=== PATIENT | female | born 1995 | race Caucasian/White ===

== ENCOUNTER → 2022-06-05 | Outpatient (REF) | payer OTHER ==
[2022-06-05 17:09] LABS: BASO # 0.1 10^3/uL (0.0-0.2); BASO % 0.6 % (0.0-1.0); EOS # 0.1 10^3/uL (0.0-0.5); EOS % 0.8 % (0.0-3.0); HEMATOCRIT 46.7 % (36.0-47.0); HEMOGLOBIN 15.4 g/dl (12.0-15.5); LYMPH # 2.6 10^3/uL (1.5-5.0); LYMPH % 32.7 % (24.0-44.0); MEAN CORPUSCULAR HEMOGLOBIN 28.4 pg (27.0-33.0); MONO # 0.6 10^3/uL (0.0-0.8); MONO % 7.1 % (2.0-8.0); NEUTROPHILS # 4.6 10^3/uL (1.5-8.5); NEUTROPHILS % 58.5 % (36.0-66.0); PLATELET COUNT, AUTOMATED 314 10^3/uL (150-450); RED BLOOD COUNT 5.43 10^6/uL (4.00-5.40); WHITE BLOOD COUNT 7.9 10^3/uL (4.0-10.0)
[2022-06-05 17:35] LABS: TOTAL 25(OH) VITAMIN D 24.6 NG/ML (20.0-100.0)
[2022-06-05 17:36] LABS: HCG, SERUM QUALITATIVE NEGATIVE (NEGATIVE); THYROID STIMULATING HORMONE 1.244 uIU/ML (0.55-4.78)
[2022-06-05 17:38] LABS: FREE T4 1.17 NG/DL (0.89-1.76)
[2022-06-05 17:40] LABS: ALBUMIN 4.2 G/DL (3.2-5.2); ALKALINE PHOSPHATASE 84 U/L (46-116); ALT/SGPT 28 U/L (7.0-40); AST/SGOT 21 U/L (<34); BILIRUBIN,TOTAL 0.7 MG/DL (0.3-1.2); BLOOD UREA NITROGEN 8 MG/DL (9-23); CALCIUM LEVEL 9.2 MG/DL (8.5-10.1); CARBON DIOXIDE LEVEL 25 MMOL/L (20-31); CHLORIDE LEVEL 103 MMOL/L (98-107); CHOLESTEROL LEVEL 164 MG/DL (<200); CHOLESTEROL RISK RATIO 2.45 (<5); CREATININE FOR GFR 0.67 MG/DL (0.55-1.30); GLOMERULAR FILTRATION RATE > 60.0 (>60); GLUCOSE, FASTING 80 MG/DL (60-100); HDL CHOLESTEROL 66.8 MG/DL (>40); LDL CHOLESTEROL 75.8 MG/DL (<100); NON-HDL-C 97 MG/DL; POTASSIUM SERUM 4.3 MMOL/L (3.5-5.1); SODIUM LEVEL 139 MMOL/L (136-145); TOTAL PROTEIN 7.7 G/DL (5.7-8.2); TRIGLYCERIDES LEVEL 107 MG/DL (<150)
[2022-06-05 17:41] LABS: HEMOGLOBIN A1c 4.7 % (4.0-6.0)
== END ==
LOC: M LAB REF 16:34
PROVIDERS: ATTEND Nurse Practitioner Family
DX: F41.8 Other specified anxiety disorders (principal); Z13.228 Encounter for screening for other metabolic disorders

== ENCOUNTER → 2022-06-09 | Outpatient (REF) | payer OTHER | LOC: M LAB REF 16:37 | PROVIDERS: ATTEND Family Medicine Addiction Medicine | DX: N10 Acute pyelonephritis (principal) ==

== ENCOUNTER 2022-06-15 08:20 | Emergency (ER) | payer OTHER ==
[~2022-06-15] VITALS: Ht 157.5 cm; Wt 68.7 kg
[2022-06-15] MEDS ORDERED: CIPR-249 PO (08:35)
[2022-06-15 09:10] LABS: BASO % 0.5 % (0.0-1.0); EOS # 0.1 10^3/uL (0.0-0.5); EOS % 1.1 % (0.0-3.0); HEMATOCRIT 42.2 % (36.0-47.0); HEMOGLOBIN 14.5 g/dl (12.0-15.5); LYMPH # 2.2 10^3/uL (1.5-5.0); LYMPH % 33.2 % (24.0-44.0); MEAN CORPUSCULAR HEMOGLOBIN 28.4 pg (27.0-33.0); MEAN CORPUSCULAR HGB CONC 34.4 g/dl (32.0-36.5); MEAN CORPUSCULAR VOLUME 82.6 fl (80.0-96.0); MONO # 0.7 10^3/uL (0.0-0.8); NEUTROPHILS # 3.5 10^3/uL (1.5-8.5); PLATELET COUNT, AUTOMATED 282 10^3/uL (150-450); RED BLOOD COUNT 5.11 10^6/uL (4.00-5.40); WHITE BLOOD COUNT 6.5 10^3/uL (4.0-10.0)
[2022-06-15 09:24] LABS: LIPASE 31 U/L (12-53)
[2022-06-15 09:26] LABS: BILIRUBIN,DIRECT 0.2 MG/DL (<0.4)
[2022-06-15 09:27] LABS: ALKALINE PHOSPHATASE 77 U/L (46-116); ALT/SGPT 26 U/L (7.0-40); AST/SGOT 22 U/L (<34); BILIRUBIN,TOTAL 0.6 MG/DL (0.3-1.2); BLOOD UREA NITROGEN 11 MG/DL (9-23); CALCIUM LEVEL 9.1 MG/DL (8.5-10.1); CARBON DIOXIDE LEVEL 23 MMOL/L (20-31); CHLORIDE LEVEL 106 MMOL/L (98-107); CREATININE FOR GFR 0.61 MG/DL (0.55-1.30); GLOMERULAR FILTRATION RATE > 60.0 (>60); GLUCOSE, FASTING 89 MG/DL (60-100); HCG, SERUM QUALITATIVE NEGATIVE (NEGATIVE); POTASSIUM SERUM 4.1 MMOL/L (3.5-5.1); SODIUM LEVEL 136 MMOL/L (136-145); TOTAL PROTEIN 7.3 G/DL (5.7-8.2)
[2022-06-15] MEDS ORDERED: ONDANSETRON 4MG 2ML VIAL IV ONE (09:35)
[2022-06-15] MEDS ORDERED: NS 1,000 ML IV ONE (09:35)
[2022-06-15] MEDS ORDERED: KETOROLAC 30 MG/ML 1ML VIAL IV ONE (09:35)
[2022-06-15] MEDS ORDERED: ISOVUE-370 76% 100ML VIAL As Ordered ONE (09:43)
[2022-06-15] MEDS ORDERED: ONDA4TAB6 PO (11:21)
[2022-06-15] MEDS ORDERED: KETO10TAB PO (11:21)
[2022-06-15 11:35] VITALS: BP 153/89
== END 2022-06-15 11:37 | disposition home or self-care (01) ==
LOC: M ED 08:20
DX: N83.291 Other ovarian cyst, right side (principal); R19.09 Other intra-abdominal and pelvic swelling, mass and lump; Z87.448 Personal history of other diseases of urinary system
CPT/HCPCS: 74177; 80048; 80076; 81000; 81015; 83690; 84703; 85025; 87086; 96361; 96374; 96375; 99284; J1885; J2405

== ENCOUNTER 2022-08-03 09:05 | Emergency (ER) | payer OTHER ==
[~2022-08-03] VITALS: Ht 154.9 cm; Wt 69.5 kg
[~2022-08-03 09:05] MED LIST: CIPR-249 PO; KETO10TAB PO; ONDA4TAB6 PO
[2022-08-03 09:06] VITALS: BP 142/90
[2022-08-03] MEDS ORDERED: PSEU30TA86 PO (09:27)
[2022-08-03] MEDS ORDERED: IBUP200C28 PO (09:27)
[2022-08-03] MEDS ORDERED: OXYM15SP2 (11:43)
== END 2022-08-03 12:00 | disposition home or self-care (01) ==
LOC: M ED 09:05
DX: B34.9 Viral infection, unspecified (principal); K21.9 Gastro-esophageal reflux disease without esophagitis; Z79.1 Long term (current) use of non-steroidal anti-inflammatories (NSAID); Z79.899 Other long term (current) drug therapy

== ENCOUNTER → 2022-08-08 | Outpatient (CLI) | payer OTHER ==
[~2022-08-08] MED LIST changes: +IBUP200C28 PO; +OXYM15SP2; +PSEU30TA86 PO
[2022-08-08 16:01] LABS: HEMOGLOBIN A1c 4.7 % (4.0-6.0)
== END ==
LOC: M PLALAB 13:56
PROVIDERS: ATTEND Nurse Practitioner Family
DX: R10.2 Pelvic and perineal pain (principal); Z80.3 Family history of malignant neoplasm of breast
CPT/HCPCS: 36415; 82627; 83036; 83498; 84146; 84402; 84403; G0463

== ENCOUNTER 2022-08-22 13:02 | Emergency (ER) | payer OTHER ==
[~2022-08-22] VITALS: Ht 154.9 cm; Wt 69.5 kg
[2022-08-22 13:03] VITALS: BP 163/111
[2022-08-22] MEDS ORDERED: CETI10CH PO (13:16)
[2022-08-23] MEDS ORDERED: MACR100C43 PO (09:47)
[2022-08-23] MEDS ORDERED: IBUP-1022 PO (09:47)
[2022-08-23] MEDS ORDERED: MIRA3350 PO (09:47)
== END 2022-08-22 18:53 | disposition left against medical advice (07) ==
LOC: M ED 13:02
DX: Z53.21 Procedure and treatment not carried out due to patient leaving prior to being seen by health care provider (principal)

== ENCOUNTER 2022-08-23 06:20 | Emergency (ER) | payer OTHER ==
[~2022-08-23] VITALS: Ht 154.9 cm; Wt 68.2 kg
[~2022-08-23 06:20] MED LIST changes: +CETI10CH PO
[2022-08-23 07:03] LABS: APPEARANCE, URINE CLOUDY (CLEAR); BACTERIA, URINE AUTO 1+ (NEGATIVE); BILIRUBIN, URINE AUTO NEGATIVE (NEGATIVE); BLOOD, URINE BLOOD NEGATIVE (NEGATIVE); COLOR, URINE AMBER (YELLOW); GLUCOSE, URINE (UA) AUTO NEGATIVE (NEGATIVE); KETONE, URINE AUTO NEGATIVE (NEGATIVE); LEUKOCYTE ESTERASE, URINE AUTO NEGATIVE (NEGATIVE); MUCUS, URINE SMALL (NEGATIVE); NITRITE, URINE AUTO POSITIVE (NEGATIVE); PROTEIN, URINE AUTO NEGATIVE (NEGATIVE); RBC, URINE AUTO 0 /HPF (0-3); SPECIFIC GRAVITY URINE AUTO 1.019 (1.002-1.035); SQUAMOUS EPITHELIAL CELL UR AU 36 /HPF (0-6); WBC, URINE AUTO 2 /HPF (0-3)
[2022-08-23 07:17] LABS: HCG, SERUM QUALITATIVE NEGATIVE (NEGATIVE)
[2022-08-23] MEDS ORDERED: ACETAMINOPHEN 325 MG TAB PO ONE (07:45)
[2022-08-23] MEDS ORDERED: ONDANSETRON 4MG ORAL DISINTEGRATING TAB PO ONE (07:45)
[2022-08-23] MEDS ORDERED: IBUPROFEN 600MG TAB PO ONE (07:55)
[2022-08-23 09:43] VITALS: BP 138/94
[2022-08-23] MEDS ORDERED: MIRA3350 PO (09:47)
[2022-08-23] MEDS ORDERED: MACR100C43 PO (09:47)
[2022-08-23] MEDS ORDERED: IBUP-1022 PO (09:47)
== END 2022-08-23 09:59 | disposition home or self-care (01) ==
LOC: M ED 06:20
DX: N94.0 Mittelschmerz (principal); N39.0 Urinary tract infection, site not specified; K59.00 Constipation, unspecified

== ENCOUNTER 2022-09-22 00:45 | Emergency (ER) | payer OTHER ==
[~2022-09-22] VITALS: Ht 154.9 cm; Wt 73.2 kg
[~2022-09-22 00:45] MED LIST changes: +IBUP-1022 PO; +MACR100C43 PO; +MIRA3350 PO
[2022-09-22] MEDS ORDERED: MIRT-10 (00:53)
[2022-09-22] MEDS ORDERED: PENI500T (00:53)
[2022-09-22 03:13] LABS: BASO % 0.4 % (0.0-1.0); EOS # 0.3 10^3/uL (0.0-0.5); HEMATOCRIT 43.5 % (36.0-47.0); HEMOGLOBIN 14.6 g/dl (12.0-15.5); LYMPH % 31.9 % (24.0-44.0); MEAN CORPUSCULAR HEMOGLOBIN 28.7 pg (27.0-33.0); MEAN CORPUSCULAR HGB CONC 33.6 g/dl (32.0-36.5); MEAN CORPUSCULAR VOLUME 85.5 fl (80.0-96.0); MONO # 1.1 10^3/uL (0.0-0.8); MONO % 11.7 % (2.0-8.0); NEUTROPHILS # 4.9 10^3/uL (1.5-8.5); NEUTROPHILS % 52.8 % (36.0-66.0); PLATELET COUNT, AUTOMATED 309 10^3/uL (150-450); RED BLOOD COUNT 5.09 10^6/uL (4.00-5.40); WHITE BLOOD COUNT 9.2 10^3/uL (4.0-10.0)
[2022-09-22 03:31] LABS: LIPASE 38 U/L (12-53)
[2022-09-22 03:34] LABS: ALBUMIN 4.1 G/DL (3.2-5.2); ALKALINE PHOSPHATASE 84 U/L (46-116); ALT/SGPT 31 U/L (7.0-40); AST/SGOT 19 U/L (<34); BILIRUBIN,DIRECT 0.1 MG/DL (<0.4); BILIRUBIN,TOTAL 0.5 MG/DL (0.3-1.2); BLOOD UREA NITROGEN 21 MG/DL (9-23); CALCIUM LEVEL 9.6 MG/DL (8.5-10.1); CARBON DIOXIDE LEVEL 26 MMOL/L (20-31); CHLORIDE LEVEL 106 MMOL/L (98-107); CREATININE FOR GFR 0.71 MG/DL (0.55-1.30); GLOMERULAR FILTRATION RATE > 60.0 (>60); GLUCOSE, FASTING 87 MG/DL (60-100); POTASSIUM SERUM 4.2 MMOL/L (3.5-5.1); SODIUM LEVEL 137 MMOL/L (136-145); TOTAL PROTEIN 7.7 G/DL (5.7-8.2)
[2022-09-22] MEDS ORDERED: KETOROLAC 30 MG/ML 1ML VIAL IV ONE ×2 (05:00→08:30)
[2022-09-22] MEDS ORDERED: NS 1,000 ML IV ONE (08:30)
[2022-09-22] MEDS ORDERED: ONDANSETRON 4MG 2ML VIAL IV ONE (08:30)
[2022-09-22] MEDS ORDERED: ISOVUE-370 76% 100ML VIAL As Ordered ONE (08:48)
[2022-09-22 09:31] VITALS: BP 112/65
[2022-09-22] MEDS ORDERED: KETO10TAB PO (09:58)
[2022-09-22] MEDS ORDERED: ONDA4TAB6 PO (09:58)
== END 2022-09-22 10:12 | disposition home or self-care (01) ==
LOC: M ED 00:45
DX: R10.9 Unspecified abdominal pain (principal)
CPT/HCPCS: 74177; 76856; 80048; 80076; 81001; 83605; 83690; 84702; 85025; 87040; 93041; 93976; 96361; 96374; 96375; 96376; 99285; J1885; J2405; Q9967

== ENCOUNTER 2022-10-07 18:45 | Emergency (ER) | payer OTHER ==
[~2022-10-07] VITALS: Ht 154.9 cm; Wt 75.5 kg
[~2022-10-07 18:45] MED LIST changes: +MIRT-10; +PENI500T
[2022-10-07] MEDS ORDERED: ONDANSETRON 4MG 2ML VIAL IV ONE (21:20)
[2022-10-07] MEDS ORDERED: NS 500 ML IV ONE (21:20)
[2022-10-07 21:55] LABS: HEMOGLOBIN 12.9 g/dl (12.0-15.5); MEAN CORPUSCULAR HEMOGLOBIN 28.3 pg (27.0-33.0); MEAN CORPUSCULAR HGB CONC 33.9 g/dl (32.0-36.5); MEAN CORPUSCULAR VOLUME 83.3 fl (80.0-96.0); PLATELET COUNT, AUTOMATED 336 10^3/uL (150-450); RED BLOOD COUNT 4.56 10^6/uL (4.00-5.40); WHITE BLOOD COUNT 13.1 10^3/uL (4.0-10.0)
[2022-10-07] MEDS ORDERED: NS 1,000 ML IV ONE (22:00)
[2022-10-07] MEDS ORDERED: ONDA4TAB6 PO (22:52)
[2022-10-07 23:02] VITALS: BP 155/96
== END 2022-10-07 22:55 | disposition home or self-care (01) ==
LOC: M ED 18:45
DX: O99.519 Diseases of the respiratory system complicating pregnancy, unspecified trimester (principal); O99.619 Diseases of the digestive system complicating pregnancy, unspecified trimester; O99.340 Other mental disorders complicating pregnancy, unspecified trimester; Z79.899 Other long term (current) drug therapy
CPT/HCPCS: 80047; 84702; 85027; 86901; 87486; 87581; 87633; 87798; 96361; 96374; 99284; J2405

== ENCOUNTER 2022-10-15 11:12 | Emergency (ER) | payer OTHER ==
[~2022-10-15] VITALS: Ht 154.9 cm; Wt 75.7 kg
[2022-10-15] MEDS ORDERED: ALBUTEROL SULFATE 2.5MG/0.5ML INH NEB SOLN NEB ONE (12:45)
[2022-10-15 14:23] VITALS: BP 135/84
[2022-10-15] MEDS ORDERED: BENZ200C70 PO ×2 (14:33→15:10)
[2022-10-15] MEDS ORDERED: OXYM15SP2 ×2 (14:33→15:10)
== END 2022-10-15 14:45 | disposition home or self-care (01) ==
LOC: M ED 11:12
DX: J06.9 Acute upper respiratory infection, unspecified (principal); B34.0 Adenovirus infection, unspecified; K21.9 Gastro-esophageal reflux disease without esophagitis; Z79.899 Other long term (current) drug therapy

== ENCOUNTER → 2022-11-07 | Outpatient (CLI) | payer OTHER ==
[~2022-11-07] MED LIST changes: +BENZ200C70 PO
[2022-11-07 15:58] LABS: HEMATOCRIT 40.5 % (36.0-47.0); HEMOGLOBIN 13.5 g/dl (12.0-15.5); MEAN CORPUSCULAR HEMOGLOBIN 28.3 pg (27.0-33.0); MEAN CORPUSCULAR HGB CONC 33.3 g/dl (32.0-36.5); MEAN CORPUSCULAR VOLUME 84.9 fl (80.0-96.0); PLATELET COUNT, AUTOMATED 302 10^3/uL (150-450); RED BLOOD COUNT 4.77 10^6/uL (4.00-5.40)
[2022-11-07 16:06] LABS: TOTAL PROTEIN,RANDOM URINE 18.8 MG/DL (0.0-14.0)
[2022-11-07 16:11] LABS: CREATININE,RANDOM URINE 152.8 MG/DL
[2022-11-07 17:27] LABS: GC DNA AMPLIFICATION NEGATIVE (NEGATIVE)
[2022-11-07 21:10] LABS: HIV 1&2 SCREEN NEGATIVE (NEGATIVE)
[2022-11-07 21:35] LABS: ALT/SGPT 15 U/L (7.0-40); LDH LACTATE DEHYDROGENASE 183 U/L (120-246); URIC ACID 3.1 MG/DL (3.1-7.8)
[2022-11-07 21:36] LABS: AST/SGOT 14 U/L (<34); BILIRUBIN,TOTAL 0.4 MG/DL (0.3-1.2); CREATININE FOR GFR 0.54 MG/DL (0.55-1.30); GLOMERULAR FILTRATION RATE > 60.0 (>60)
== END ==
LOC: M PLALAB 14:27
PROVIDERS: ATTEND Specialist
DX: Z34.01 Encounter for supervision of normal first pregnancy, first trimester (principal)

== ENCOUNTER → 2022-12-19 | Outpatient (REF) | payer OTHER | LOC: M PLALAB 10:48 | PROVIDERS: ATTEND Obstetrics & Gynecology | DX: Z86.19 Personal history of other infectious and parasitic diseases (principal) | CPT/HCPCS: 87624; G0123 ==

== ENCOUNTER → 2022-12-19 | Outpatient (CLI) | payer OTHER | LOC: M PLALAB 10:20 | PROVIDERS: ATTEND Obstetrics & Gynecology | DX: Z34.80 Encounter for supervision of other normal pregnancy, unspecified trimester (principal) ==

== ENCOUNTER → 2023-01-17 | Outpatient (REF) | payer OTHER | LOC: M SFHCWAGY 12:51 | PROVIDERS: ATTEND Obstetrics & Gynecology | DX: R10.2 Pelvic and perineal pain (principal) | CPT/HCPCS: 87086; G0463 ==

== ENCOUNTER → 2023-01-23 | Outpatient (CLI) | payer OTHER | LOC: M RAD 08:59 | PROVIDERS: ATTEND Obstetrics & Gynecology | DX: O32.2XX0 Maternal care for transverse and oblique lie, not applicable or unspecified (principal); Z3A.20 20 weeks gestation of pregnancy ==

== ENCOUNTER 2023-02-28 20:57 | Outpatient (CLI) | payer OTHER ==
[~2023-02-28] VITALS: Ht 152.4 cm; Wt 96.4 kg
[2023-02-28 21:13] VITALS: BP 132/67
[2023-02-28] MEDS ORDERED: TUMS500C PO (21:22)
[2023-02-28] MEDS ORDERED: PREN1CHW6 PO (21:22)
[2023-02-28] MEDS ORDERED: HOME MED LIST COMPLETE! XX SCH (21:25)
[2023-02-28] MEDS ORDERED: LABE200T5 PO (21:40)
[2023-02-28] MEDS ORDERED: CLON0.1D3 TOP (21:40)
[2023-02-28] MEDS ORDERED: MIRT1TAB17 PO (21:40)
[2023-02-28] MEDS ORDERED: ASPI81CH33 PO (21:40)
[2023-02-28] MEDS ORDERED: DIAZ2TAB PO (21:40)
== END 2023-02-28 22:03 | disposition home or self-care (01) ==
LOC: M LDO 20:57
PROVIDERS: ATTEND Advanced Practice Midwife
DX: O36.8120 Decreased fetal movements, second trimester, not applicable or unspecified (principal); O99.342 Other mental disorders complicating pregnancy, second trimester; F41.9 Anxiety disorder, unspecified; F32.A Depression, unspecified; O10.012 Pre-existing essential hypertension complicating pregnancy, second trimester; Z79.899 Other long term (current) drug therapy; Z3A.25 25 weeks gestation of pregnancy
CPT/HCPCS: 59025; G0463

== ENCOUNTER → 2023-03-14 | Outpatient (CLI) | payer OTHER ==
[~2023-03-14] MED LIST changes: +ASPI81CH33 PO; +CLON0.1D3 TOP; +DIAZ2TAB PO; +LABE200T5 PO; +MIRT1TAB17 PO; +PREN1CHW6 PO; +TUMS500C PO
[2023-03-14 14:21] LABS: ALBUMIN 2.3 G/DL (3.2-5.2); ALKALINE PHOSPHATASE 86 U/L (46-116); ALT/SGPT 20 U/L (7.0-40); AST/SGOT 18 U/L (<34); BILIRUBIN,TOTAL 0.2 MG/DL (0.3-1.2); BLOOD UREA NITROGEN 11 MG/DL (9-23); CALCIUM LEVEL 8.6 MG/DL (8.5-10.1); CARBON DIOXIDE LEVEL 22 MMOL/L (20-31); CHLORIDE LEVEL 106 MMOL/L (98-107); CREATININE FOR GFR 0.44 MG/DL (0.55-1.30); GLOMERULAR FILTRATION RATE > 60.0 (>60); GLUCOSE, FASTING 84 MG/DL (60-100); SODIUM LEVEL 137 MMOL/L (136-145)
[2023-03-14 14:27] LABS: CREATININE,RANDOM URINE 53.6 MG/DL
== END ==
LOC: M PLALAB 10:43
PROVIDERS: ATTEND Obstetrics & Gynecology
DX: O10.919 Unspecified pre-existing hypertension complicating pregnancy, unspecified trimester (principal); Z3A.00 Weeks of gestation of pregnancy not specified

== ENCOUNTER → 2023-03-14 | Outpatient (CLI) | payer OTHER ==
[2023-03-14 14:10] LABS: HEMOGLOBIN 11.1 g/dl (12.0-15.5); MEAN CORPUSCULAR HEMOGLOBIN 27.3 pg (27.0-33.0); MEAN CORPUSCULAR HGB CONC 32.6 g/dl (32.0-36.5); MEAN CORPUSCULAR VOLUME 83.5 fl (80.0-96.0); PLATELET COUNT, AUTOMATED 237 10^3/uL (150-450); RED BLOOD COUNT 4.07 10^6/uL (4.00-5.40); WHITE BLOOD COUNT 10.4 10^3/uL (4.0-10.0)
== END ==
LOC: M PLALAB 10:40
PROVIDERS: ATTEND Advanced Practice Midwife
DX: O10.012 Pre-existing essential hypertension complicating pregnancy, second trimester (principal); Z3A.00 Weeks of gestation of pregnancy not specified

== ENCOUNTER → 2023-03-19 | Outpatient (CLI) | payer OTHER | LOC: M PLALAB 10:21 | PROVIDERS: ATTEND Advanced Practice Midwife | DX: O10.012 Pre-existing essential hypertension complicating pregnancy, second trimester (principal); Z3A.00 Weeks of gestation of pregnancy not specified ==

== ENCOUNTER → 2023-03-23 | Outpatient (CLI) | payer OTHER | LOC: M WHC 13:30 | PROVIDERS: ATTEND Obstetrics & Gynecology | DX: O26.843 Uterine size-date discrepancy, third trimester (principal); Z3A.28 28 weeks gestation of pregnancy ==

== ENCOUNTER 2023-03-27 08:14 | Emergency (ER) | payer OTHER ==
[~2023-03-27] VITALS: Ht 152.4 cm; Wt 99.9 kg
[2023-03-27] MEDS ORDERED: ACETAMINOPHEN 500 MG TAB PO ONE (09:50)
[2023-03-27 11:32] VITALS: BP 167/80; TEMP 97.2; O2SAT 97
== END 2023-03-27 11:33 | disposition home or self-care (01) ==
LOC: M ED 08:14
DX: O99.513 Diseases of the respiratory system complicating pregnancy, third trimester (principal); J40 Bronchitis, not specified as acute or chronic; J02.9 Acute pharyngitis, unspecified

== ENCOUNTER → 2023-04-18 | Outpatient (CLI) | payer OTHER ==
[~2023-04-18] MED LIST changes: +CLONI1TA PO
== END ==
LOC: M RAD 13:47
PROVIDERS: ATTEND Obstetrics & Gynecology
DX: O28.8 Other abnormal findings on antenatal screening of mother (principal); Z3A.32 32 weeks gestation of pregnancy; O32.1XX0 Maternal care for breech presentation, not applicable or unspecified
CPT/HCPCS: 59025; 76815; 76819; 76820; 90471; 90715; G0463

== ENCOUNTER 2023-04-19 12:38 | Outpatient (CLI) | payer OTHER ==
[~2023-04-19] VITALS: Ht 152.4 cm; Wt 102.5 kg
[~2023-04-19 12:38] MED LIST changes: -CLONI1TA PO
[2023-04-19 13:09] VITALS: BP 165/85; O2SAT 98
[2023-04-19 13:15] VITALS: BP 124/60
[2023-04-19] MEDS ORDERED: CLONI1TA PO (13:22)
[2023-04-19 13:33] VITALS: BP 135/71
[2023-04-19] MEDS ORDERED: HOME MED LIST COMPLETE! XX SCH (14:05)
[2023-04-19 14:08] LABS: APPEARANCE, URINE HAZY (CLEAR); BACTERIA, URINE AUTO NEGATIVE (NEGATIVE); BILIRUBIN, URINE AUTO NEGATIVE (NEGATIVE); BLOOD, URINE BLOOD NEGATIVE (NEGATIVE); COLOR, URINE YELLOW (YELLOW); GLUCOSE, URINE (UA) AUTO NEGATIVE (NEGATIVE); KETONE, URINE AUTO NEGATIVE (NEGATIVE); LEUKOCYTE ESTERASE, URINE AUTO NEGATIVE (NEGATIVE); MUCUS, URINE SMALL (NEGATIVE); NITRITE, URINE AUTO NEGATIVE (NEGATIVE); PROTEIN, URINE AUTO NEGATIVE (NEGATIVE); RBC, URINE AUTO 0 /HPF (0-3); SPECIFIC GRAVITY URINE AUTO 1.015 (1.002-1.035); SQUAMOUS EPITHELIAL CELL UR AU 24 /HPF (0-6); UROBILINOGEN, URINE AUTO 0.2 mg/dL (0.0-2.0); WBC, URINE AUTO 1 /HPF (0-3)
== END 2023-04-19 14:23 | disposition home or self-care (01) ==
LOC: M LDO 12:38
PROVIDERS: ATTEND Obstetrics & Gynecology
DX: O26.893 Other specified pregnancy related conditions, third trimester (principal); R10.2 Pelvic and perineal pain; O10.913 Unspecified pre-existing hypertension complicating pregnancy, third trimester; O99.343 Other mental disorders complicating pregnancy, third trimester; F41.8 Other specified anxiety disorders; Z3A.32 32 weeks gestation of pregnancy
CPT/HCPCS: 59025; 81001; G0463

== ENCOUNTER → 2023-04-19 | Outpatient (REF) | payer OTHER | LOC: M LAB REF 16:29 | PROVIDERS: ATTEND Nurse Practitioner Family | DX: R30.0 Dysuria (principal) ==

== ENCOUNTER → 2023-04-23 | Outpatient (CLI) | payer OTHER ==
[~2023-04-23] MED LIST changes: +CLONI1TA PO
== END ==
LOC: M LAB 08:15
PROVIDERS: ATTEND Advanced Practice Midwife
DX: O99.810 Abnormal glucose complicating pregnancy (principal); Z3A.00 Weeks of gestation of pregnancy not specified

== ENCOUNTER → 2023-04-27 | Outpatient (CLI) | payer OTHER | LOC: M WHC 11:00 | PROVIDERS: ATTEND Obstetrics & Gynecology | DX: O10.913 Unspecified pre-existing hypertension complicating pregnancy, third trimester (principal); O32.1XX0 Maternal care for breech presentation, not applicable or unspecified; Z3A.35 35 weeks gestation of pregnancy ==

== ENCOUNTER → 2023-05-03 | Outpatient (CLI) | payer OTHER | LOC: M RAD 10:27 | PROVIDERS: ATTEND Obstetrics & Gynecology | DX: O28.8 Other abnormal findings on antenatal screening of mother (principal); Z3A.34 34 weeks gestation of pregnancy ==

== ENCOUNTER → 2023-05-11 | Outpatient (REF) | payer OTHER | LOC: M PLALAB 15:55 | PROVIDERS: ATTEND Obstetrics & Gynecology | DX: Z36.85 Encounter for antenatal screening for Streptococcus B (principal); Z3A.35 35 weeks gestation of pregnancy ==

== ENCOUNTER → 2023-05-11 | Outpatient (CLI) | payer OTHER | LOC: M RAD 13:26 | PROVIDERS: ATTEND Obstetrics & Gynecology | DX: O28.8 Other abnormal findings on antenatal screening of mother (principal); Z3A.35 35 weeks gestation of pregnancy; O32.1XX0 Maternal care for breech presentation, not applicable or unspecified ==

== ENCOUNTER → 2023-05-24 | Outpatient (CLI) | payer OTHER ==
[~2023-05-24] MED LIST changes: +FAMO10TA50 PO
== END ==
LOC: M WHC 15:01
PROVIDERS: ATTEND Obstetrics & Gynecology
DX: O28.8 Other abnormal findings on antenatal screening of mother (principal); O32.1XX0 Maternal care for breech presentation, not applicable or unspecified; Z3A.37 37 weeks gestation of pregnancy

== ENCOUNTER → 2023-08-10 | Outpatient (REF) | payer OTHER ==
[~2023-08-10] MED LIST changes: +ACET-683 PO; +COLA100C5 PO; +OXYC-517 PO
[2023-08-10 17:49] LABS: BASO # 0.1 10^3/uL (0.0-0.2); BASO % 1.1 % (0.0-1.0); EOS # 0.4 10^3/uL (0.0-0.5); EOS % 6.1 % (0.0-3.0); HEMATOCRIT 43.5 % (36.0-47.0); HEMOGLOBIN 14.1 g/dl (12.0-15.5); LYMPH # 2.5 10^3/uL (1.5-5.0); LYMPH % 39.7 % (24.0-44.0); MEAN CORPUSCULAR HGB CONC 32.4 g/dl (32.0-36.5); MEAN CORPUSCULAR VOLUME 80.1 fl (80.0-96.0); MONO # 0.8 10^3/uL (0.0-0.8); NEUTROPHILS # 2.6 10^3/uL (1.5-8.5); NEUTROPHILS % 40.9 % (36.0-66.0); PLATELET COUNT, AUTOMATED 293 10^3/uL (150-450); RED BLOOD COUNT 5.43 10^6/uL (4.00-5.40); WHITE BLOOD COUNT 6.3 10^3/uL (4.0-10.0)
== END ==
LOC: M LAB REF 11:19
PROVIDERS: ATTEND Family Medicine Addiction Medicine
DX: D64.9 Anemia, unspecified (principal); N39.0 Urinary tract infection, site not specified

== ENCOUNTER → 2023-08-28 | Outpatient (REF) | payer OTHER ==
[~2023-08-28] MED LIST changes: -PSEU30TA86 PO; +PSEU30TA87 PO
== END ==
LOC: M LAB REF 11:28
PROVIDERS: ATTEND Nurse Practitioner Family
DX: J06.9 Acute upper respiratory infection, unspecified (principal)

== ENCOUNTER 2023-09-13 09:19 | Emergency (ER) | payer OTHER ==
[~2023-09-13] VITALS: Ht 152.4 cm; Wt 100.0 kg
[2023-09-13] MEDS ORDERED: MIRT1TAB16 PO (09:43)
[2023-09-13] MEDS ORDERED: CLON1TAB8 (09:43)
[2023-09-13 11:26] LABS: RSV AMPLIFICATION NEGATIVE (NEGATIVE)
[2023-09-13] MEDS: ONDANSETRON 4MG 2ML VIAL IV ONE (11:57)
[2023-09-13] MEDS: KETOROLAC 30 MG/ML 1ML VIAL IV ONE (11:57)
[2023-09-13] MEDS: NS 1,000 ML IV ONE (11:58)
[2023-09-13 12:03] LABS: APPEARANCE, URINE CLOUDY (CLEAR); BACTERIA, URINE AUTO NEGATIVE (NEGATIVE); BILIRUBIN, URINE AUTO NEGATIVE (NEGATIVE); BLOOD, URINE BLOOD NEGATIVE (NEGATIVE); COLOR, URINE AMBER (YELLOW); GLUCOSE, URINE (UA) AUTO NEGATIVE (NEGATIVE); KETONE, URINE AUTO NEGATIVE (NEGATIVE); LEUKOCYTE ESTERASE, URINE AUTO NEGATIVE (NEGATIVE); MUCUS, URINE SMALL (NEGATIVE); NITRITE, URINE AUTO NEGATIVE (NEGATIVE); PROTEIN, URINE AUTO 1+ mg/dL (NEGATIVE); RBC, URINE AUTO 2 /HPF (0-3); SPECIFIC GRAVITY URINE AUTO 1.025 (1.002-1.035); SQUAMOUS EPITHELIAL CELL UR AU 22 /HPF (0-6); WBC, URINE AUTO 2 /HPF (0-3)
[2023-09-13 12:05] LABS: BASO % 0.4 % (0.0-1.0); EOS # 0.1 10^3/uL (0.0-0.5); EOS % 2.3 % (0.0-3.0); HEMATOCRIT 42.9 % (36.0-47.0); HEMOGLOBIN 14.1 g/dl (12.0-15.5); LYMPH # 1.7 10^3/uL (1.5-5.0); LYMPH % 32.7 % (24.0-44.0); MEAN CORPUSCULAR HEMOGLOBIN 26.8 pg (27.0-33.0); MEAN CORPUSCULAR HGB CONC 32.9 g/dl (32.0-36.5); MEAN CORPUSCULAR VOLUME 81.6 fl (80.0-96.0); MONO # 0.4 10^3/uL (0.0-0.8); MONO % 8.6 % (2.0-8.0); NEUTROPHILS # 2.9 10^3/uL (1.5-8.5); NEUTROPHILS % 55.8 % (36.0-66.0); PLATELET COUNT, AUTOMATED 235 10^3/uL (150-450); RED BLOOD COUNT 5.26 10^6/uL (4.00-5.40); WHITE BLOOD COUNT 5.1 10^3/uL (4.0-10.0)
[2023-09-13 12:08] LABS: URINE PREG TEST NEGATIVE (NEGATIVE)
[2023-09-13 12:29] LABS: LIPASE 24 U/L (12-53)
[2023-09-13 12:32] LABS: ALBUMIN 3.4 G/DL (3.2-5.2); ALKALINE PHOSPHATASE 156 U/L (46-116); ALT/SGPT 246 U/L (7.0-40); AST/SGOT 394 U/L (<34); BILIRUBIN,DIRECT 0.4 MG/DL (<0.4); BLOOD UREA NITROGEN 12 MG/DL (9-23); CALCIUM LEVEL 8.8 MG/DL (8.5-10.1); CARBON DIOXIDE LEVEL 24 MMOL/L (20-31); CHLORIDE LEVEL 105 MMOL/L (98-107); GLOMERULAR FILTRATION RATE > 60.0 (>60); GLUCOSE, FASTING 90 MG/DL (60-100); POTASSIUM SERUM 3.9 MMOL/L (3.5-5.1); SODIUM LEVEL 137 MMOL/L (136-145); TOTAL PROTEIN 6.7 G/DL (5.7-8.2)
[2023-09-13 13:50] LABS: HEPATITIS B CORE ANTIBODY IGM NEGATIVE (NEGATIVE)
[2023-09-13 13:51] LABS: HEPATITIS C VIRUS ABY INDEX < 0.02 INDEX (<0.8)
[2023-09-13] MEDS ORDERED: ISOVUE-370 76% 100ML VIAL As Ordered ONE (14:04)
[2023-09-13] MEDS: METOCLOPRAMIDE INJ 10MG/2ML VIAL IV ONE (14:08)
[2023-09-13 15:20] VITALS: BP 120/74; TEMP 97.2; O2SAT 98
[2023-09-13 17:04] LABS: MONO REFLEX EBV COMP NEGATIVE (NEGATIVE)
[2023-09-15 18:08] LABS: EBV VIRAL CAPSID AG IgM <36.0 U/mL (0.0-35.9)
== END 2023-09-13 16:37 | disposition home or self-care (01) ==
LOC: M ED 09:19
DX: M79.10 Myalgia, unspecified site (principal); R74.01 Elevation of levels of liver transaminase levels; R16.2 Hepatomegaly with splenomegaly, not elsewhere classified; I10 Essential (primary) hypertension; K21.9 Gastro-esophageal reflux disease without esophagitis; Z79.899 Other long term (current) drug therapy
CPT/HCPCS: 74177; 76705; 80048; 80074; 80076; 80143; 81001; 83690; 84703; 85025; 86308; 86664; 86665; 87631; 96374; 96375; 99284; J1885; J2405; J2765; Q9967

== ENCOUNTER → 2023-09-28 | Outpatient (REF) | payer OTHER ==
[~2023-09-28] MED LIST changes: +CLON1TAB8; +MIRT1TAB16 PO
== END ==
LOC: M SFHCWAGY 14:51
PROVIDERS: ATTEND Nurse Practitioner Family
DX: N39.0 Urinary tract infection, site not specified (principal)

== ENCOUNTER 2023-10-04 16:59 | Emergency (ER) | payer OTHER ==
[~2023-10-04] VITALS: Ht 152.4 cm; Wt 99.2 kg
[2023-10-04 17:00] VITALS: BP 133/85; TEMP 97.1; O2SAT 97
[2023-10-04] MEDS ORDERED: FLUTISP (17:14)
[2023-10-04] MEDS ORDERED: CETI-24 PO (17:14)
[2023-10-04] MEDS ORDERED: DESV50TA3 (17:14)
== END 2023-10-04 17:19 | disposition left against medical advice (07) ==
LOC: M ED 16:59
DX: Z53.21 Procedure and treatment not carried out due to patient leaving prior to being seen by health care provider (principal)